=== PATIENT | female | born 1945 | race Caucasian/White ===

== ENCOUNTER 2019-05-08 10:13 | Emergency (ER) | payer MEDICARE, BC ==
[~2019-05-08] VITALS: Ht 162.6 cm; Wt 62.3 kg
[2019-05-08] MEDS ORDERED: LOPERAMIDE 2 MG CAPSULE ONE ×3 (11:25→13:32)
[2019-05-08] MEDS ORDERED: LOPERAMIDE 2 MG CAPSULE PO ONE ×3 (11:30→14:00)
[2019-05-08] MEDS ORDERED: SODIUM CHLORIDE 0.9% 1,000ML IVBOLUS ONE ×2 (11:30→13:00)
[2019-05-08] MEDS ORDERED: SODIUM CHLORIDE FLUSH 10ML SYR IVF ONE (11:30)
[2019-05-08 11:33] LABS: BASOPHILS # (AUTO) 0.01 x10^3/uL (0-0.1); BASOPHILS % (AUTO) 0 % (0-1); EOSINOPHILS # (AUTO) 0.02 x10^3/uL (0-0.4); EOSINOPHILS % (AUTO) 0 % (1-7); LYMPHOCYTES # (AUTO) 0.51 x10^3/uL (1-3.4); LYMPHOCYTES % (AUTO) 5 % (22-44); MD NO; MEAN CORPUSCULAR HEMOGLOBIN 30.7 pg (27.0-34.8); MEAN CORPUSCULAR HGB CONC 33.4 g/dL (32.4-35.8); MEAN CORPUSCULAR VOLUME 91.8 fL (80-100); MEAN PLATELET VOLUME 8.7 fL (7.4-10.4); MONOCYTES # (AUTO) 0.22 x10^3/uL (0.2-0.8); MONOCYTES % (AUTO) 2 % (2-9); NEUTROPHILS # (AUTO) 8.86 x10^3/uL (1.8-6.8); NEUTROPHILS % (AUTO) 92 % (42-75); PLATELET COUNT 277 x10^3/uL (130-400); RED BLOOD COUNT 4.53 x10^6/uL (3.82-5.3); RED CELL DISTRIBUTION WIDTH 13.7 % (9.6-15.2)
--- NOTE | 2019-05-08 11:45 | NUR ---
PT RESTING IN [facility], PT HAS HAD MULTIPLE EPISODES OF DIARRHEA IN BEDSIDE COMMODE. IV ESTABLISHED AND PT MEDICATED PER MAR, IVF INFUSING. PT ON MONITOR, VSS, CALL LIGHT WITHIN REACH.
[2019-05-08 11:46] LABS: ALBUMIN 4.4 g/dL (3.4-5.0); ANION GAP 10 mmol/L (5-15); CALCIUM 9.4 mg/dL (8.5-10.1); CHLORIDE 111 mmol/L (98-107); CREATININE 1.31 mg/dL (0.55-1.02)
[2019-05-08 11:59] LABS: CLOSTRIDIUM DIFFICILE ANTIGEN NEGATIVE; CLOSTRIDIUM DIFFICILE TOXIN NEGATIVE (Negative)
--- NOTE | 2019-05-08 12:40 | NUR ---
PT RESTING IN [facility] AWAITNG LAB RESULTS, IVF INFUSING AND PT MEDICATED PER MAR. VSS ON MONITOR, PT HAVING DIARRHEA STILL. BEDSIDE COMMODE IN PLACE. CALL LIGHT WITHIN REACH. AT BEDSIDE
--- NOTE | 2019-05-08 13:32 | NUR ---
PT STILL HAVING MULTIPLE EPISODES OF DIARRHEA, NOTIFIED AND ADDITIONAL DOSE OF IMMODIUM ORDERED.
--- NOTE | 2019-05-08 13:54 | NUR ---
TASK RN: PT RESTING ON GURNEY. NADN. SANDOVALS. IVF INFUSING.
--- NOTE | 2019-05-08 14:09 | NUR ---
TASK RN: IVF COMPLETED. PT STATES SHE HAS HAD 2 BM'S IN THE LAST 15 MIN. ERP NOTIFIED.
[2019-05-08] MEDS ORDERED: DIPHENOXYLATE/ATROPINE ORAL SOL PO STA (14:10)
[2019-05-08] MEDS ORDERED: CIPROFLOXACIN 500 MG TABLET ONE (14:21)
[2019-05-08] MEDS ORDERED: CIPROFLOXACIN 500 MG TABLET PO ONE (14:30)
--- NOTE | 2019-05-08 15:02 | NUR ---
PT STILL HAVING FREQUENT EPISODES OF DIARRHEA, NOTIFIED
[2019-05-08] MEDS ORDERED: LOSA1TAB19 PO (15:58)
[2019-05-08] MEDS ORDERED: ASPI-515 PO (15:58)
--- NOTE | 2019-05-08 16:04 | NUR ---
PT RESTING IN [facility], PT TO BE ADMITTED. AWAITNIG BED ASSIGNMENT
--- NOTE | 2019-05-08 16:48 | NUR ---
REPORT TO KINDRA JOHNSON
[2019-05-08 17:22] VITALS: BP 149/65
[2019-05-08] MEDS ORDERED: SODIUM CHLORIDE 0.9% 1,000 ML IV SCH (17:51)
[2019-05-08] MEDS ORDERED: POTASSIUM CHLORIDE 20 MEQ in SODIUM CHLORIDE 0.9% 250 ML IV ONE (18:00)
[2019-05-08] MEDS ORDERED: morphine SULFATE 10 MG/ML, 1ML IVPush PRN (18:00)
[2019-05-08] MEDS ORDERED: hydrALAzine 20 MG/ML, 1ML IVPush PRN (18:00)
[2019-05-08] MEDS ORDERED: ONDANSETRON 2MG/ML, 2ML IVPush PRN (18:00)
[2019-05-08 19:12] VITALS: BP 121/68
[2019-05-08] MEDS ORDERED: MAGNESIUM SULFATE 1 GM/2 ML IV ONE (20:00)
[2019-05-08] MEDS ORDERED: POTASSIUM PHOSPHATE 22 MEQ in SODIUM CHLORIDE 0.9% 500 ML IV ONE (20:00)
[2019-05-08] MEDS ORDERED: MAGNESIUM SULFATE 1 GM in SODIUM CHLORIDE 0.9% 50 ML IV ONE (20:30)
[2019-05-09 00:43] VITALS: BP 101/58
[2019-05-09 06:42] VITALS: BP 111/51
[2019-05-09 06:55] LABS: ALBUMIN 3.1 g/dL (3.4-5.0); ANION GAP 4 mmol/L (5-15); CALCIUM 7.9 mg/dL (8.5-10.1); CHLORIDE 118 mmol/L (98-107)
[2019-05-09 06:58] LABS: ALANINE AMINOTRANSFERASE 15 U/L (12-78); ALKALINE PHOSPHATASE 53 U/L (45-117); BILIRUBIN,TOTAL 0.8 mg/dL (0.2-1.0); CREATININE 0.84 mg/dL (0.55-1.02)
[2019-05-09] MEDS ORDERED: PANTOPRAZOLE 40 MG IV IVPush SCH (07:30)
[2019-05-09] MEDS ORDERED: PANT40TA3 PO (10:52)
[2019-05-09] MEDS ORDERED: ONDA4TAB13 SL (10:52)
== END 2019-05-09 12:06 | disposition home or self-care (01) ==
LOC: ED 15:53 → INTOOBSV 15:54 → EDIP 15:54 → UNDOADMOB 15:54 → ED 16:04 → 3N 16:47 → EDIP 16:47 → 3N 17:51 → DCLOUNGE 05-09 11:55
PROVIDERS: ADMIT Family Medicine; ATTEND Internal Medicine
DX: R19.7 Diarrhea, unspecified (principal); E86.0 Dehydration; E87.2 Acidosis; I10 Essential (primary) hypertension; N17.0 Acute kidney failure with tubular necrosis; Z79.82 Long term (current) use of aspirin; Z79.899 Other long term (current) drug therapy
CPT/HCPCS: 36415; 80048; 80053; 82040; 83735; 84100; 84443; 85025; 87046; 87324; 87427; 89055; 93005; 96361; 96365; 96375; 99284; C9113; G0378; J3475; J3480; J7030; J7040; J7050; 96366; 96367